=== PATIENT | male | born 1970 | race Caucasian/White ===

== ENCOUNTER 2017-12-27 12:51 | Emergency (ER) | payer BC ==
[2017-12-27 13:21] LABS: ADD MAN DIFF? NO
[2017-12-27 13:23] LABS: WHITE BLOOD COUNT 12.4 10^3/ul (4.8-10.8)
[2017-12-27 13:23] LABS: BASOPHILS % 0.2 % (0.0-2.0); EOSINOPHILS # 0.1 10^3/ul (0.0-0.5); HEMATOCRIT 40.9 % (42.0-52.0); HEMOGLOBIN 13.1 g/dl (14.0-18.0); LYMPHOCYTES # 1.3 10^3/ul (0.8-2.9); LYMPHOCYTES % 10.3 % (15.0-51.0); MEAN CORPUSCULAR VOLUME 84.2 fl (82.0-101.0); MEAN PLATELET VOLUME 9.6 fl (7.4-10.4); MONOCYTE # 0.6 10^3/ul (0.3-0.9); NEUTROPHIL # 10.3 10^3/ul (1.6-7.5); NEUTROPHILS % 82.9 % (39.0-77.0); PLATELET COUNT 328 10^3/UL (140-415); RED BLOOD COUNT 4.86 10^6/ul (4.70-6.10); RED CELL DISTRIBUTION WIDTH 12.6 % (11.5-14.5)
[2017-12-27] MEDS: SOD CHLORIDE 0.9% 1,000 ML IV (13:31)
[2017-12-27] MEDS: ONDANSETRON 4 MG INJ IV ×2 (13:31→16:02)
[2017-12-27 13:52] LABS: ALANINE AMINOTRANSFERASE 27 IU/L (13-69); ALBUMIN/GLOBULIN RATIO 1.29; ALKALINE PHOSPHATASE 78 IU/L (42-121); ANION GAP 14 (5-13); ASPARTATE AMINO TRANSFERASE 23 IU/L (15-46); BILIRUBIN,INDIRECT 0.4 mg/dl (0-1.1); BILIRUBIN,TOTAL 0.4 mg/dl (0.2-1.3); BLOOD UREA NITROGEN 10 mg/dl (7-20); CALCIUM 10.1 mg/dl (8.4-10.2); CARBON DIOXIDE 24 mmol/L (21-31); CHLORIDE 103 mmol/L (97-110); CREATININE 0.84 mg/dl (0.61-1.24); GLUCOSE 145 mg/dl (70-220); LIPASE 75 U/L (23-300); SODIUM 141 mmol/L (135-144); TOTAL PROTEIN 7.1 g/dl (6.1-8.1)
[2017-12-27] MEDS: KETOROLAC 30 MG INJ IV (14:01)
[2017-12-27] MEDS: morphine 2 MG INJ IV (14:04)
[2017-12-27 14:21] LABS: ETHANOL < 10.0 mg/dl
[2017-12-27] MEDS: HYDROmorphONE 0.5 MG/0.5 ML SYG IV ×2 (14:59→16:02)
== END 2017-12-27 16:43 | disposition home or self-care (01) ==
LOC: E/R 12:51
DX: K52.9 Noninfective gastroenteritis and colitis, unspecified (principal); D64.9 Anemia, unspecified; R11.2 Nausea with vomiting, unspecified
CPT/HCPCS: 36415; 74176; 80053; 80307; 83690; 85025; 96374; 96375; 99285-25